=== PATIENT | female | born 1995 | race Caucasian/White ===

== ENCOUNTER 2016-07-20 14:34 | Emergency (ER) | payer SELFPAY ==
[~2016-07-20] VITALS: Ht 170.2 cm; Wt 61.0 kg
[2016-07-20 14:37] VITALS: BP 145/93; PULSE 81; RESP 12; TEMP 97.5; O2SAT 98
--- NOTE | 2016-07-20 15:12 | PD ---
HPI Chief Complaint: Skin Problem Time Seen by Provider: 15:04 Travel History International Travel<30 days: No Contact w/Intl Traveler<30days: No Traveled to known affect area: No History of Present Illness HPI 20-year-old female presents to the emergency Department with complaint of possible mosquito bites to her left and right upper back, the back of her left leg, the right thigh that have come and gone and gotten worse over the last 2 weeks. Reports just having a few bites yesterday and waking up this morning with more. Reports rash is itchy. She moved into her new apartment 2 weeks ago. She did stay in a hotel tonight prior to moving into her new apartment. Denies new detergents, lotions, soaps, medications, foods, environmental exposures. Denies airway edema, stridor, difficulty breathing, shortness of breath. His fever, chills, nausea, vomiting. Has tried topical hydrocortisone cream with no relief. Has not tried any other medications or treatments to alleviate her symptoms. No known aggravating or relieving factors. No other modifying factors or seceded signs and symptoms. History Past Medical Histgory Tetanus Vaccination: < 5 Years Social History Alcohol Use: No Tobacco Use: No Allergies-Medications (Allergen,Severity, Reaction): Coded Allergies: No Known Allergies (Unverified , 07/20/16) Reported Meds & Prescriptions Reported Meds & Active Scripts Active No Active Prescriptions or Reported Medications Review of Systems Except as stated in HPI: all other systems reviewed are Neg Physical Exam Narrative GENERAL: Well-nourished, well-developed female patient, in no acute distress SKIN: Warm and dry. Multiple small erythematous bumps noted to bilateral upper back just behind the axillary area, right thigh, and left calf; areas seem to be consistent with bedbug bites; no signs of cellulitic process or infection. HEAD: Atraumatic. Normocephalic. EYES: Pupils equal and round. No scleral icterus. No injection or drainage. ENT: Mucosa pink and moist. Airway patent. NECK: Trachea midline. CARDIOVASCULAR: Regular rate. RESPIRATORY: No accessory muscle use. GASTROINTESTINAL: Flat. MUSCULOSKELETAL: No obvious deformities. No clubbing. No cyanosis. No edema. NEUROLOGICAL: Awake and alert. Oriented 3. No obvious cranial nerve deficits. Motor grossly within normal limits. Normal speech. PSYCHIATRIC: Appropriate mood and affect; insight and judgment normal. Data Data Last Documented VS Vital Signs Date Time Temp Pulse Resp B/P Pulse Ox O2 Delivery O2 Flow Rate FiO2 07/20/16 14:37 97.5 81 12 145/93 98 Room Air [facility] Medical Screen Exam Complete: Yes Emergency Medical Condition: No Differential Diagnosis Bedbug bites, mosquito bites, scabies, nonspecific rash Narrative Course 20-year-old female with suspected bedbug bites. Afebrile. Denies fever, chills , nausea, vomiting. Rash is itchy. I offered to give Benadryl for itching but the patient declined at this time. Vital signs are stable and the patient is stable for outpatient follow-up and treatment. The patient has no urgent or emergent medical complaints. There is no emergent or urgent medical need at this time. I instructed the patient to follow up with their primary care provider. A medical screening exam was performed: At the time of evaluation the presenting medical condition was determined not to be of an emergent nature. The patient was given the option of receiving additional care, but declined. Patient was given options for additional community resources from which to obtain care. The Patient Has Been advised to seek medical attention for their presenting complaint. The patient has been advised to return to the ER at any time if an emergent condition develops. Primary Impression: Encounter for medical screening examination Scripts No Active Prescriptions or Reported Meds Condition: Stable Sandi Gonzalez Jul 20, 2016 15:12
== END 2016-07-20 15:14 | disposition left against medical advice (07) ==
LOC: NEPB 14:34
DX: R21 Rash and other nonspecific skin eruption (principal)
CPT/HCPCS: 99281

== ENCOUNTER 2016-12-03 20:08 | Emergency (ER) | payer SELFPAY ==
[~2016-12-03] VITALS: Ht 170.2 cm; Wt 61.5 kg
[2016-12-03 20:10] VITALS: BP 148/90; PULSE 107; RESP 18; TEMP 98.8; O2SAT 99
[2016-12-03 20:49] VITALS: BP 125/76; PULSE 85; RESP 14; O2SAT 99
[2016-12-03] MEDS ORDERED: VIST25CA PO (21:48)
--- NOTE | 2016-12-03 21:48 | PD ---
HPI Chief Complaint: Anxiety Time Seen by Provider: 21:19 Travel History International Travel<30 days: No Contact w/Intl Traveler<30days: No Traveled to known affect area: No History of Present Illness HPI 21-year-old female complains of anxiety panic attack. Patient states that she has intermittent anxiety panic attack for the past 2 months. Patient states that she had anxiety panic attack 2 months ago and started having chest pressure for the past month. Patient states that she had an anxiety panic attack about an hour prior to arrival. Patient states that she feels much better now. Patient denies headache. Patient denies any chest pain or shortness of breath. Patient denies abdominal pain. Patient denies any nausea vomiting diarrhea. Patient denies any chance of being . PFSH Past Medical History Anxiety: Yes ?: Not Past Surgical History Gynecologic Surgery: Yes (LAP SX FOR ENDOMETRIOSIS) Social History Alcohol Use: No Tobacco Use: No Substance Use: Yes (MARIJUANA) Allergies-Medications (Allergen,Severity, Reaction): Coded Allergies: No Known Allergies (Unverified , 12/03/16) Reported Meds & Prescriptions Reported Meds & Active Scripts Active No Active Prescriptions or Reported Medications Review of Systems General / Constitutional: No: Fever Eyes: No: Visual changes HENT: No: Headaches Cardiovascular: No: Chest Pain or Discomfort Respiratory: No: Shortness of Breath Gastrointestinal: No: Abdominal Pain Genitourinary: No: Dysuria Musculoskeletal: No: Pain Skin: No Rash Neurologic: No: Weakness Psychiatric: No: Depression Endocrine: No: Polydipsia Hematologic/Lymphatic: No: Easy Bruising Physical Exam Narrative GENERAL: Well-nourished, well-developed patient. SKIN: Focused skin assessment warm/dry. HEAD: Normocephalic. EYES: No scleral icterus. No injection or drainage. NECK: Supple, trachea midline. No JVD or lymphadenopathy. CARDIOVASCULAR: Regular rate and rhythm without murmurs, gallops, or rubs. RESPIRATORY: Breath sounds equal bilaterally. No accessory muscle use. GASTROINTESTINAL: Abdomen soft, non-tender, nondistended. MUSCULOSKELETAL: No cyanosis, or edema. BACK: Nontender without obvious deformity. No CVA tenderness. Neurologic exam normal. Data Data Last Documented VS Vital Signs Date Time Temp Pulse Resp B/P Pulse Ox O2 Delivery O2 Flow Rate FiO2 12/03/16 20:51 85 15 12/03/16 20:49 125/76 99 Room Air 12/03/16 20:10 98.8 MDM Medical Decision Making Medical Screen Exam Complete: Yes Emergency Medical Condition: Yes Differential Diagnosis Differential diagnosis including anxiety, panic attack, adjustment disorder. Narrative Course 21-year-old female with recurrent anxiety panic attack. Patient's asymptomatic now. Diagnosis Primary Impression: Anxiety disorder due to general medical condition with panic attack Patient Instructions: General Instructions Additional Instructions: Vistaril as needed. Follow-up with personal physician. Return if persistent problem or worse. Med/Other Pt SpecificInfo: Prescription(s) given Scripts Hydroxyzine Pamoate (Vistaril)25 Mg Cap25 Mg PO TID PRN (ANXIETY) #30 CAP Ref 0 Prov:Ralph Pereira MD 12/03/16 Disposition: 01 DISCHARGE HOME Condition: Stable Ralph Pereira MD Dec 03, 2016 21:48
== END 2016-12-03 22:19 | disposition home or self-care (01) ==
LOC: NEPD 20:08
DX: F06.4 Anxiety disorder due to known physiological condition (principal); F41.0 Panic disorder [episodic paroxysmal anxiety]
CPT/HCPCS: 99283